=== PATIENT | female | born 1995 | race Caucasian/White ===

== ENCOUNTER 2023-08-27 13:24 | Emergency (ER) | payer OTHER, SELFPAY ==
[2023-08-27 13:29] VITALS: BP 135/75; PULSE 83; RESP 20; TEMP 36.6; O2SAT 98; BMI 33.2
--- NOTE | 2023-08-27 13:44 | ED_ITS ---
HPI - Dental/Oral General Chief complaint: Dental/Oral Stated complaint: MOUTH PAIN Time Seen by Provider: 08/27/23 13:29 Source: patient Mode of arrival: walk-in Limitations: no limitations History of Present Illness HPI Narrative: Patient is a 27-year-old female who presents to the emergency department For the evaluation of tenderness in tooth #1. She states she has had a hole in that molar for some time, she does not have a dentist. She is not concerned for . She states in the last day she has had an increase in pain. No fevers, drainage from the tooth or vomiting. She took ibuprofen this morning. Related Data Previous Rx's ?Medication ?Instructions ?Recorded amoxicillin 500 mg capsule 500 mg PO TID 10 days #30 caps 08/27/23 ketorolac 10 mg tablet 10 mg PO TID PRN pain #10 tabs 08/27/23 Allergies Allergy/AdvReac Type Severity Reaction Status Date / Time No Known Drug Allergies Allergy Verified 08/27/23 13:29 Review of Systems ROS Constitutional Denies: fever or chills Ears, nose, mouth, and throat Denies: throat pain or nasal congestion Cardiovascular Denies: chest pain Respiratory Denies: shortness of breath or cough Gastrointestinal Denies: nausea or vomiting Integumentary/Breast Denies: rash Neurological Denies: headache Hematologic/Lymphatic Denies: easy bruising or easy bleeding Exam Narrative Exam Narrative: Gen.: Awake, alert, in no distress Head: Normocephalic, atraumatic ENT: Moist mucous membranes, Fracture on the posterior aspect of tooth #1 with root exposure. No abscess, no redness or swelling under the tongue. Clear speech. Respiratory: No respiratory distress Extremities: Moves extremities equally Psych: Normal mood and affect Neuro: No focal neuro deficit Skin: Warm, dry, intact Constitutional Vital Signs, click to edit/add: Last Vital Signs Temp 98 F 08/27/23 13:29 Pulse 83 08/27/23 13:29 Resp 20 08/27/23 13:29 BP 135/75 08/27/23 13:29 Pulse Ox 98 08/27/23 13:29 O2 Del Method Room Air 08/27/23 13:29 Course Vital Signs Vital signs: Vital Signs Temperature 98 F 08/27/23 13:29 Pulse Rate 83 08/27/23 13:29 Respiratory Rate 20 08/27/23 13:29 Blood Pressure 135/75 08/27/23 13:29 Pulse Oximetry 98 08/27/23 13:29 Oxygen Delivery Method Room Air 08/27/23 13:29 Temperature 98 F 08/27/23 13:29 Pulse Rate 83 08/27/23 13:29 Respiratory Rate 20 08/27/23 13:29 Blood Pressure 135/75 08/27/23 13:29 Pulse Oximetry 98 08/27/23 13:29 Oxygen Delivery Method Room Air 08/27/23 13:29 MDM - Dental/Oral MDM Narrative Medical decision making narrative: Patient treated with topical analgesia and placed on a course of amoxicillin and NSAIDs for home. She is given her referral packet for dentist in the area. Return to the ER if symptoms change or worsen For this patient encounter I reviewed the mid-level provider?s documentation, medical decision-making and treatment plan, and I personally spent time with this patient. Shared APC visit, physician attestation: [id number]: The visit was performed by both a physician and an APC. I performed all aspects of MDM as documented. - DO Hugo Medical Records Attestation: I reviewed the patient's medical records. Discharge Plan Discharge Stand Alone Forms: Portal Instructions Chief Complaint: Dental/Oral Clinical Impression: Toothache Patient Disposition: Home, Self-Care Time of Disposition Decision: 13:43 Condition: Good Prescriptions / Home Meds: New amoxicillin 500 mg capsule 500 mg PO TID 10 Days Qty: 30 0RF ketorolac 10 mg tablet 10 mg PO TID PRN (Reason: pain) Qty: 10 0RF Print Language: Albanian Instructions: Toothache (ED) Additional Instructions: Follow up with dentist Referrals: Physician,Non-Staff, MD [Primary Care Provider] - 1 week Discharge Date/Time: 08/27/23 13:49
[2023-08-27] MEDS: BENZOCAINE 30 ML, lidocaine HCL 15 ML MM (13:46)
== END 2023-08-27 13:49 | disposition home or self-care (01) ==
PROVIDERS: Emergency Provider Emergency Medicine
DX: K08.89 Other specified disorders of teeth and supporting structures (principal)
CPT/HCPCS: 99283